=== PATIENT | male | born 1960 | race American Indian/Alaskan Native ===

== ENCOUNTER 2016-07-24 08:37 | Emergency (ER) | payer MEDICARE ==
[2016-07-24 08:51] VITALS: BP 134/96
--- NOTE | 2016-07-24 09:48 | Emergency Department Report ---
ED Rash HPI - HPI Chief Complaint: Skin Rash Stated Complaint: ITCHING ALL OVER Time Seen by Provider: 07/24/16 08:56 Duration: 3-4 weeks Location: Other (generalized) Suspected Cause: Unknown Rash Symptoms: Yes Itching (generalized), No Facial Swelling, No Tongue/Oral Swelling, No Breathing Difficulties, No Choking Sensation, No Wheezing/Dyspnea, No Peeling, No Blistering, No Fever, No Lightheaded, No Malaise, No Myalgias Severity: moderate Other History: Patient presented to the ER from [facility] reports that he's been itching for 3-4 weeks. Denies any hives or rash. Denies any shortness of breath or coughing. Denies wheezing. He said he is constantly scratching the skin. He denies any fever or chills. He is unsure of why he is itching. ED Review of Systems ROS: Stated complaint: ITCHING ALL OVER Other details as noted in HPI Comment: All other systems reviewed and negative Constitutional: denies: chills, fever ENT: denies: throat pain, congestion Respiratory: denies: cough, orthopnea, shortness of breath, SOB with exertion, SOB at rest, stridor, wheezing Cardiovascular: denies: chest pain, palpitations, edema, syncope Gastrointestinal: denies: abdominal pain, nausea, vomiting Musculoskeletal: denies: back pain Skin: denies: rash Neurological: denies: headache, weakness, numbness, paresthesias, vertigo ED Past Medical Hx - Past Medical History Previous Medical History?: Yes Hx Hypertension: Yes Additional medical history: GLAUCOMA - Surgical History Past Surgical History?: Yes Hx Appendectomy: Yes Additional Surgical History: RIGHT CAROTID SURGERY - Family History Family history: no significant - Social History Smoking Status: Current Every Day Smoker Substance Use Type: None - Medications Home Medications: Home Medications Medication Instructions Recorded Confirmed Last Taken Type Lisinopril [Zestril] 20 mg PO QDAY 07/24/16 07/24/16 07/24/16 07:45 History Permethrin 5% [Acticin 5% CREAM] 1 applicatio TP ONCE #1 tube 07/24/16 Unknown Rx Rash Exam - Exam General: Vital signs noted. No distress. Alert and acting appropriately. This is a 56 well-nourished well-developed in no acute distress HEENT: No Periorbital Edema, No Conjuctival Injection, No Chemosis, No Perioral Edema, No Tongue Edema, No Uvular Edema, No Compromised Airway, No Drooling Lungs: Yes Good Air Exchange, No Wheezes, No Ronchi, No Stridor, No Cough, No Labored Respirations, No Retractions, No Use of Accessory Muscles, No Other Abnormal Lung Sounds Heart: Yes Regular, No Murmur Skin: No Urticarial Rash, No Maculopapular Rash (noted areas and abdomen with burrowing), No Morbilliform rash, No Bulla(e), No Excoriations, No Weeping, No Tenderness, No Erythema, No Edema, No Encrustations, No Other Other: Positive: Abdomen Normal, Neurologic Normal, Musculoskeletal Normal ED Course Vital Signs 07/24/16 08:47 Temperature 97.8 F Pulse Rate 75 Respiratory 16 Rate Blood Pressure 134/96 O2 Sat by Pulse 100 Oximetry - Reevaluation(s) Reevaluation #1: 07/24/16 09:50 Patient stable and had an uneventful ED stay ED Medical Decision Making - Medical Decision Making ED course: Patient with scabies. I explained diagnosis and treatment plan to patient and he forced understanding. Patient discharged home in stable condition with prescription for permethrin cream. Critical care attestation.: If time is entered above; I have spent that time in minutes in the direct care of this critically ill patient, excluding procedure time. ED Disposition Clinical Impression: Scabies, Pruritic condition Disposition: DISCHARGED TO HOME OR SELFCARE Is pt being admited?: No Does the pt Need Aspirin: No Condition: Stable Instructions: Scabies (ED), Itchy Skin (ED) Additional Instructions: Apply permethrin cream from neck to toes and wash off 8 hours after application of breathing. Please wash her clothes and linen. Take Atarax for itching. He continued to experience itching after removal of clean To 14 days. Patient given a second treatment of permethrin cream 2 weeks after initial treatment. Prescriptions: Permethrin 5% [Acticin 5% CREAM] 1 applicatio TP ONCE #1 tube Referrals: PRIMARY CARE, [Primary Care Provider] - 3-5 Days WILLIAM VANG MD [Staff Physician] - 3-5 Days [facility] [Outside] - 3-5 Days Forms: Work/School Release Form(ED)
== END 2016-07-24 09:58 | disposition home or self-care (01) ==
LOC: ED 08:37
DX: B86 Scabies (principal); I10 Essential (primary) hypertension; F17.200 Nicotine dependence, unspecified, uncomplicated
CPT/HCPCS: 99282

== ENCOUNTER 2018-06-08 12:09 | Emergency (ER) | payer MEDICARE ==
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
[2018-06-08 13:05] LABS: Basophils # (Auto) 0.1 K/mm3 (0.0-0.1); Basophils % (Auto) 0.5 % (0.0-1.8); Eosinophils % (Auto) 0.4 % (0.0-4.3); Hematocrit 41.6 % (35.5-45.6); Hemoglobin 14.6 gm/dl (11.8-15.2); Lymphocytes % (Auto) 20.4 % (13.4-35.0); Mean Corpuscular HGB Conc 35 % (32-34); Mean Corpuscular Volume 90 fl (84-94); Monocytes # (Auto) 0.4 K/mm3 (0.0-0.8); Monocytes % (Auto) 3.9 % (0.0-7.3); Platelet Count 221 K/mm3 (140-440); Red Cell Distribution Width 15.7 % (13.2-15.2)
[2018-06-08 13:25] LABS: BUN/Creatinine Ratio 10; Blood Urea Nitrogen 12 mg/dL (9-20); Calcium 9.5 mg/dL (8.4-10.2); Hemolysis Index 1
[2018-06-08 13:43] LABS: Bilirubin,Urine NEG (Negative); Blood,Urine NEG (Negative); Color,Urine Straw (Yellow); Protein,Urine <15 mg/dL mg/dL (Negative); Urobilinogen,Urine < 2.0 mg/dL (<2.0); WBC,Urine < 1.0 /HPF (0.0-6.0)
[2018-06-08 13:57] LABS: Amphetamine Screen,Urine PRESUMPTIVE NEGATIVE; Benzodiazepines Screen,Urine PRESUMPTIVE NEGATIVE; Cannabinoid Screen,Urine PRESUMPTIVE NEGATIVE; Methadone Screen,Urine PRESUMPTIVE NEGATIVE; Opiate Screen,Urine PRESUMPTIVE NEGATIVE
[2018-06-08 14:21] LABS: Cocaine Screen,Urine PRESUMPTIVE POSITIVE
[2018-06-09] MEDS ORDERED: ATIVAN PO ONE (00:13)
[2018-06-09 03:32] VITALS: BP 135/85
== END 2018-06-09 05:45 ==
LOC: ED 12:09
DX: F32.9 Major depressive disorder, single episode, unspecified (principal); I10 Essential (primary) hypertension; F17.200 Nicotine dependence, unspecified, uncomplicated; F14.90 Cocaine use, unspecified, uncomplicated; F10.10 Alcohol abuse, uncomplicated; Z90.49 Acquired absence of other specified parts of digestive tract
CPT/HCPCS: 36415; 80048; 80307; 81001; 85025; 99285; G0480; 80320

== ENCOUNTER 2018-08-30 21:45 | Emergency (ER) | payer MEDICARE ==
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
--- NOTE | 2018-08-30 23:43 | XRay Report ---
PROCEDURE: Right knee. TECHNIQUE: 3 views. HISTORY: Right knee pain. COMPARISONS: None. FINDINGS: The bones appear intact without fracture or dislocation. The joint spaces appear normal. There is mansi e atherosclerotic calcification in the visualized arteries. There is no evidence of a knee effusion. IMPRESSION: Atherosclerosis. No evidence of acute knee abnormality. This document is electronically signed by Romel Ryan MD., August 30 2018 11:41:33 PM ET
[2018-08-31] MEDS ORDERED: TORADOL IM ONE (02:17)
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
[2018-08-31] MEDS ORDERED: TYLENOL ONE (03:27)
[2018-08-31] MEDS ORDERED: TYLENOL PO ONE (03:27)
[2018-08-31 03:29] VITALS: BP 160/96
== END 2018-08-31 03:47 | disposition home or self-care (01) ==
LOC: ED 21:45
DX: S86.911A Strain of unspecified muscle(s) and tendon(s) at lower leg level, right leg, initial encounter (principal); I10 Essential (primary) hypertension; F17.200 Nicotine dependence, unspecified, uncomplicated; Z90.49 Acquired absence of other specified parts of digestive tract; V89.2XXA Person injured in unspecified motor-vehicle accident, traffic, initial encounter; Y93.89 Activity, other specified; Y92.89 Other specified places as the place of occurrence of the external cause; Y99.8 Other external cause status
CPT/HCPCS: 73562; 96372; 99283; J1885

== ENCOUNTER 2019-08-03 01:06 | Emergency (ER) | payer MEDICARE ==
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
[2019-08-03 01:46] LABS: Bilirubin,Urine NEG (Negative); Blood,Urine NEG (Negative); Color,Urine Yellow (Yellow); Hyaline Casts,Urine 1 /LPF; Mucus,Urine FEW /HPF; Protein,Urine <15 mg/dL mg/dL (Negative)
[2019-08-03 01:49] LABS: Hematocrit 39.5 % (35.5-45.6); Mean Corpuscular HGB Conc 33 % (32-34); Mean Corpuscular Volume 92 fl (84-94); Platelet Count 322 K/mm3 (140-440)
[2019-08-03 01:52] LABS: Amphetamine Screen,Urine PRESUMPTIVE NEGATIVE; Benzodiazepines Screen,Urine PRESUMPTIVE NEGATIVE; Cannabinoid Screen,Urine PRESUMPTIVE NEGATIVE; Methadone Screen,Urine PRESUMPTIVE NEGATIVE; Opiate Screen,Urine PRESUMPTIVE NEGATIVE
[2019-08-03 01:59] LABS: BUN/Creatinine Ratio 14; Blood Urea Nitrogen 19 mg/dL (9-20); Calcium 9.9 mg/dL (8.4-10.2); Hemolysis Index 3
[2019-08-03 02:28] LABS: Cocaine Screen,Urine PRESUMPTIVE POSITIVE
[2019-08-03 03:40] LABS: Basophils % (Manual) 0 % (0.0-1.8); Total Cells Counted 100
[2019-08-03 03:41] LABS: Burr Cells Few; Ovalocytes Rare; Platelet Estimate Consistent w Auto; Schistocytes Few
[2019-08-03] MEDS ORDERED: NON-FORMULARY EACH (Simvastatin [Simvastatin] 20 MG) PO SCH (18:45)
[2019-08-03] MEDS ORDERED: buPROPion SR 150 MG TAB PO SCH (19:00)
[2019-08-03 20:02] VITALS: BP 124/90
[2019-08-03] MEDS ORDERED: PRAVASTATIN 40 MG TAB PO SCH (22:00)
[2019-08-03] MEDS ORDERED: QUEtiapine 200 MG TAB PO SCH (22:00)
[2019-08-03] MEDS ORDERED: traZODone 100 MG TAB PO SCH (22:00)
== END 2019-08-03 22:54 ==
LOC: ED 01:06 → 5A 15:23 → UNDOADMIN 15:23 → ED 22:54
DX: R45.851 Suicidal ideations (principal); F32.9 Major depressive disorder, single episode, unspecified; I10 Essential (primary) hypertension; H40.9 Unspecified glaucoma; Z98.890 Other specified postprocedural states; Z90.49 Acquired absence of other specified parts of digestive tract; F17.200 Nicotine dependence, unspecified, uncomplicated; Z79.899 Other long term (current) drug therapy; Z91.018 Allergy to other foods
CPT/HCPCS: 36415; 80048; 80307; 81001; 85007; 85025; 99284; A9270; 80320; G0480

== ENCOUNTER 2019-08-09 12:21 | Emergency (ER) | payer MEDICARE ==
[2019-08-09] MEDS ORDERED: cloNIDine 0.2 MG TAB PO STA (12:39)
--- NOTE | 2019-08-09 12:54 | Emergency Department Report ---
ED General Adult HPI - General Chief complaint: Recheck/Abnormal Lab/Rx Stated complaint: BLOOD PRESSURE HIGH Time Seen by Provider: 08/09/19 12:34 Source: patient Mode of arrival: Ambulatory Limitations: No Limitations - History of Present Illness Initial comments: 59-year-old [place]ian male seeking admission to [facility] for psychiatric assistance was found to have elevated blood pressure and was advised to come to the emergency department for further evaluation and treatment options. Reports his hypertension associated with headache as well but reports no chest pain or shortness of breath no palpitations. Radiation: non-radiation Severity scale (0 -10): 2 Consistency: constant Improves with: none Worsens with: none Associated Symptoms: denies: confusion, chest pain, cough, headaches, malaise, nausea/vomiting, shortness of breath, syncope, weakness Treatments Prior to Arrival: none - Related Data Home Medications Medication Instructions Recorded Confirmed Last Taken Latanoprost 0.005% Eye Drop 1 drop OU HS 06/08/18 08/04/19 Unknown Simvastatin 20 mg PO DAILY 08/03/19 08/04/19 Unknown Previous Rx's Medication Instructions Recorded Last Taken Type QUEtiapine [SEROquel] 200 mg PO HS #30 08/08/19 Unknown Rx buPROPion SR [Wellbutrin SR] 300 mg PO DAILY #30 tablet 08/08/19 Unknown Rx traZODone [Desyrel] 100 mg PO QHS #30 08/08/19 Unknown Rx Allergies Allergy/AdvReac Type Severity Reaction Status Date / Time tomato AdvReac Swelling Verified 08/04/19 07:27 ED Review of Systems ROS: Stated complaint: BLOOD PRESSURE HIGH Other details as noted in HPI Comment: All other systems reviewed and negative ED Past Medical Hx - Past Medical History Previous Medical History?: Yes Hx Hypertension: Yes Additional medical history: GLAUCOMA, legally blind - Surgical History Past Surgical History?: Yes Hx Appendectomy: Yes Additional Surgical History: RIGHT CAROTID SURGERY - Social History Smoking Status: Current Every Day Smoker Substance Use Type: None - Medications Home Medications: Home Medications Medication Instructions Recorded Confirmed Last Taken Type Latanoprost 0.005% Eye Drop 1 drop OU HS 06/08/18 08/04/19 Unknown History Simvastatin 20 mg PO DAILY 08/03/19 08/04/19 Unknown History QUEtiapine [SEROquel] 200 mg PO HS #30 08/08/19 Unknown Rx buPROPion SR [Wellbutrin SR] 300 mg PO DAILY #30 tablet 08/08/19 Unknown Rx traZODone [Desyrel] 100 mg PO QHS #30 08/08/19 Unknown Rx ED Physical Exam - General Limitations: No Limitations General appearance: alert, in no apparent distress - Head Head exam: Present: atraumatic, normocephalic - Eye Eye exam: Present: normal appearance, PERRL, EOMI Pupils: Present: normal accommodation - ENT ENT exam: Present: mucous membranes moist, other (Negative funduscopic examination) - Neck Neck exam: Present: normal inspection, full ROM. Absent: meningismus, lymphadenopathy, thyromegaly - Respiratory Respiratory exam: Present: normal lung sounds bilaterally. Absent: respiratory distress, wheezes, rales - Cardiovascular Cardiovascular Exam: Present: regular rate, normal rhythm. Absent: systolic murmur, diastolic murmur, rubs, gallop - GI/Abdominal GI/Abdominal exam: Present: soft, normal bowel sounds - Rectal Rectal exam: Present: deferred - Extremities Exam Extremities exam: Present: normal inspection, full ROM, normal capillary refill - Back Exam Back exam: Present: normal inspection. Absent: CVA tenderness (R), CVA tenderness (L) - Neurological Exam Neurological exam: Present: alert, oriented X3, CN II-XII intact - Psychiatric Psychiatric exam: Present: normal affect, normal mood. Absent: anxious, flat affect, manic - Skin Skin exam: Present: warm, dry, intact, normal color. Absent: rash, diaphoretic, erythema, urticaria, petechiae, pallor, abrasion ED Course Vital Signs 08/09/19 08/09/19 08/09/19 12:31 12:38 12:42 Temperature 97.9 F 97.9 F Pulse Rate 68 68 100 H Respiratory 16 16 Rate Blood Pressure 186/101 181/101 Blood Pressure 186/101 186/101 [Left] O2 Sat by Pulse 100 100 Oximetry 08/09/19 08/09/19 13:11 13:34 Temperature Pulse Rate 74 67 Respiratory 16 Rate Blood Pressure Blood Pressure 174/99 147/102 [Left] O2 Sat by Pulse 100 100 Oximetry ED Medical Decision Making - Medical Decision Making This patient presents with a headache most consistent with hypertension headache. Differential diagnosis includes migraine versus tension type headache. No headache red flags. Neurologic exam without evidence of meningismus, focal neurologic findings.Based on the patient's history and physical there is very low clinical suspicion for significant intracranial pathology. The headache was NOT sudden onset, NOT maximal at onset, there are NO neurologic findings, the pa tient does NOT have a fever, the patient does NOT have any jaw claudication, the patient does NOT endorse a clotting disorder, patient DENIES any trauma or eye pain and the headache is NOT associated with dizziness or ataxia. Presentation not consistent with acute intracranial bleed to include SAH (lack of risk factors, headache history). Presentation not consistent with acute [employer] infection to include meningitis or brain abscess, Temporal arteritis unlikely, as is acute angle closure glaucoma given history and physical findings. Presentation not consistent with other acute, emergent causes of headache at this time. Plan to treat symptomatically with pain medication. No indication for imaging/LP at this time. Plan: pain medication, CT brain was deferred, serial reassessment Headache improved with reduction of blood pressure. Blood pressure significantly reduced the patient is pleased with results and plan to follow-up with [facility] for admission Critical care attestation.: If time is entered above; I have spent that time in minutes in the direct care of this critically ill patient, excluding procedure time. ED Disposition Clinical Impression: Hypertension, Hypertensive urgency Disposition: DC-01 TO HOME OR SELFCARE Is pt being admited?: No Does the pt Need Aspirin: No Condition: Stable Instructions: Hypertensive Crisis (ED), Hypertension (ED) Additional Instructions: Please return to [facility] for admission Referrals: OPAL ANDERSON MD [Primary Care Provider] - 3-5 Days
[2019-08-09 13:35] VITALS: BP 147/102
== END 2019-08-09 14:45 | disposition home or self-care (01) ==
LOC: ED 12:21
DX: I16.0 Hypertensive urgency (principal); F17.200 Nicotine dependence, unspecified, uncomplicated; Z91.018 Allergy to other foods; Z79.899 Other long term (current) drug therapy
CPT/HCPCS: 99282

== ENCOUNTER 2021-01-09 14:42 | Emergency (ER) | payer MEDICARE ==
[2021-01-09 18:50] VITALS: BP 175/99
== END 2021-01-09 19:37 | disposition home or self-care (01) ==
LOC: ED 14:42
DX: R51.9 Headache, unspecified (principal); M26.641 Arthritis of right temporomandibular joint; I10 Essential (primary) hypertension; F17.200 Nicotine dependence, unspecified, uncomplicated; Z90.49 Acquired absence of other specified parts of digestive tract; Z91.018 Allergy to other foods; Z79.899 Other long term (current) drug therapy
CPT/HCPCS: 36415; 70450; 80053; 85025; 85652; 99284

== ENCOUNTER 2021-02-23 23:07 | Emergency (ER) | payer MEDICARE ==
[2021-02-24] MEDS ORDERED: ONDANSETRON 4 MG ODT TAB PO ONE ×2 (00:45→04:32)
[2021-02-24] MEDS ORDERED: IBUPROFEN 600 MG TAB PO ONE (00:45)
[2021-02-24] MEDS ORDERED: HYDROcodone/ACETAMINOPHEN 5-325 MG TAB PO ONE (00:45)
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
[2021-02-24] MEDS ORDERED: AMOXICILLIN/K CLAV 875/125MG TAB PO ONE (04:32)
[2021-02-24] MEDS ORDERED: oxyCODONE /ACETAMINOPHEN 5-325MG TAB PO ONE (04:32)
[2021-02-24 05:01] VITALS: BP 137/92
== END 2021-02-24 06:17 | disposition home or self-care (01) ==
LOC: ED 23:07
DX: S02.92XA Unspecified fracture of facial bones, initial encounter for closed fracture (principal); S00.83XA Contusion of other part of head, initial encounter; S00.03XA Contusion of scalp, initial encounter; S10.93XA Contusion of unspecified part of neck, initial encounter; I10 Essential (primary) hypertension; H40.9 Unspecified glaucoma; Z90.89 Acquired absence of other organs; Z98.890 Other specified postprocedural states; F17.200 Nicotine dependence, unspecified, uncomplicated; Z91.018 Allergy to other foods; Y08.89XA Assault by other specified means, initial encounter; Y93.89 Activity, other specified; Y92.89 Other specified places as the place of occurrence of the external cause; Y99.8 Other external cause status
CPT/HCPCS: 70450; 70486; 72125; 99283; Q0162